=== PATIENT | female | born 1945 | race Caucasian/White ===

== ENCOUNTER 2021-02-13 11:07 | Day surgery (SDC) | payer MEDICARE, OTHER, SELFPAY ==
[2021-02-13 11:40] VITALS: BP 143/75; PULSE 90; RESP 16; TEMP 35.8; O2SAT 95
[2021-02-13] MEDS: Tropicam./Phenyleph. (1/2.5%) 5 ML BTL OS ×3 (11:40→11:51)
--- NOTE | 2021-02-13 11:48 | ANES.PREOP_ITS ---
General Info Date of Service Date Performed: 02/13/21 Height: 4 ft 10 in Weight: 60.6 kg Body Mass Index (BMI): 27.9 Surgical Procedure: Operation Date: 02/13/21 12:55 Proposed Procedures Side Surgeon p Cataract Extraction with IOL Implant Left Maximino Mcclain MD Meds Allergies and Home Medications Allergies Allergy/AdvReac Type Severity Reaction Status Date / Time morphine Allergy Severe Other (See Unverified 02/13/21 11:29 Comment) Dye Allergy Intermediate Hives Uncoded 02/13/21 11:29 Narcotics Allergy Unknown Other (See Uncoded 02/10/21 10:25 Comment) CT-scan Dye Allergy Hives Uncoded 02/10/21 10:25 Home Medication Medication Instructions Recorded aspirin [Aspir-81] 81 mg PO DAILY 02/09/21 calcium carbonate [Calcium 500] 500 mg PO DAILY 02/09/21 cephalexin 2,000 mg PO DIRECTED PRN 02/09/21 cholecalciferol (vitamin D3) 1,000 unit PO DAILY 02/09/21 [Vitamin D3] clindamycin phosphate [Cleocin] 1 appful VAGINAL HS 02/09/21 levothyroxine 50 mcg PO DAILY 02/09/21 lisinopril 10 mg PO DAILY 02/09/21 lovastatin 40 mg PO DAILY 02/09/21 omeprazole 40 mg PO DAILY 02/09/21 venlafaxine 75 mg PO DAILY 02/09/21 Current Visit Medications: Current Medications Generic Name Dose Route Start Last Admin Trade Name Freq PRN Reason Stop Dose Admin Acetaminophen 1,000 mg 02/13/21 06:00 Acetaminophen 500 Mg Tab PO Q4H PRN PRN Miscellaneous Medication 0 ml 02/13/21 06:00 Prednisolone 1%, Moxifloxacin 0.5%, Nepafenac 0.1% 5ml Btl OS DIRECTED [facility] Miscellaneous Medication 0 ml 02/13/21 06:00 02/13/21 11:46 Tropicam./Phenyleph. (1/2.5%) 5 Ml Btl OS 1 drp DIRECTED [facility] Administration Tetracaine HCl 0 ml 02/13/21 06:00 Tetracaine 0.5% 4 Ml Btl OS DIRECTED [facility] Medical History Medical History Anxiety Carotid stenosis US 10/01/18 <50% stenosis bilat. per week med. note. Causalgia of upper limb Chilblains Chronic constipation Chronic leukopenia Chronic rhinitis Depression Essential hypertension GERD (gastroesophageal reflux disease) Glaucoma pt. denies this Herpes zoster Hyperlipidemia Hypoglycemia Hypothyroidism Ingrowing nail Insomnia Left cataract Left ventricular thrombosis pt. denies this Lumbar subluxation L4-L5 Multiple sclerosis Mumps Onychodystrophy Osteoporosis Raynaud's phenomenon without gangrene Toe pain, bilateral Varicella Surgical History Surgical History (Updated 02/13/21 @ 11:37 by Nissa Langford) History of left hip replacement Hx of cataract extraction Right Hx of cholecystectomy Hx of colonoscopy Hx of hysterectomy Tobacco Smoking/Tobacco Use Status: Former Tobacco Use Alcohol Alcohol Intake: current Alcohol intake frequency: holidays/special occasions only Substance Use Substance use type: does not use Vital Signs and Lab Results Vital Signs Most Recent Vital Signs in EMR: Most Recent Vital Signs Temp Pulse Resp BP Pulse Ox 35.8 C L 90 16 143/75 H 95 02/13/21 11:40 02/13/21 11:40 02/13/21 11:40 02/13/21 11:40 02/13/21 11:40 Lab Results Blood Type / Crossmatch: No Data to Display Complete Blood Count: No Data to Display Complete Metabolic Panel: No Data to Display Liver Function Panel: No Data to Display Coagulation Panel: No Data to Display Cardiac Panel: No Data to Display Arterial Blood Gas: No Data to Display Venous Blood Gas: No Data to Display Pancreas Panel: No Data to Display Thyroid Panel: No Data to Display Infectious Disease: No Data to Display Blood Cultures: No Data to Display Toxicology Panel: No Data to Display Anesthesia Assessment and Plan Anesthesia History Personal History: No History of Anesthesia Complications Family History: No Family History of Anesthesia Complications Exercise Tolerance Exercise Tolerance: Metabolic Equivalents>4 Pertinent Negatives Pertinent Negatives: No Symptoms of GERD (Well controlled) Cardiac & Pulmonary Exam Cardiac Exam: Normal S1/S2 Heart Sounds Pulmonary Exam: Clear Bilateral Breath Sounds Airway Exam Known Difficult Airway: No Mallampati Class: 2 Mouth Opening: Normal (> 3cm) Thyromental Distance: Greater than 3 cm Neck Range of Motion: Full ROM Neck Circumference: Normal Teeth Condition: Normal Dentition and Removable Dentures/Plates Upper ASA Classification ASA Score: ASA 2 Emergency Case?: No NPO Status NPO Status: NPO Clears >2 hours, Solids >8 hours Anesthesia Plan Resuscitation Status: Full Code Anesthesia Technique: MAC Anesthesia Airway Planned: Natural Airway Monitors Used: Standard Monitors
[2021-02-13 11:57] VITALS: BMI 27.9
[2021-02-13] MEDS: Balanced Salt Soln.-PLUS 500 ML BAG (12:33)
[2021-02-13] MEDS: Tetracaine 0.5% 4 ML BTL OS (12:34)
[2021-02-13] MEDS: Lidocaine 1% Pres-Free 5 ML VIAL (12:34)
[2021-02-13] MEDS: Duovisc Viscoelastic System EACH 1 EACH (12:34)
[2021-02-13] MEDS: Povidone-Iodine Ophth 30 ML BTL (12:34)
[2021-02-13] MEDS: Lidocaine 2% Jelly 6 ML SYR (12:35)
--- NOTE | 2021-02-13 12:55 | W.PM.DSUDISC ---
Discharge Plan Disposition Patient Disposition: HOME Condition: Good Discharge Details Reason For Visit: CATARACT Attending Provider: Maximino Mcclain Primary Care Provider: Paty Edwards Home Meds and New Rx's Prescriptions: No Action venlafaxine 75 mg capsule,extended release 24hr 75 mg PO DAILY RF: 0 lovastatin 40 mg tablet 40 mg PO DAILY RF: 0 omeprazole 40 mg capsule,delayed release(DR/EC) 40 mg PO DAILY RF: 0 aspirin [Aspir-81] 81 mg Tablet,Delayed Release (Dr/Ec) 81 mg PO DAILY RF: 0 calcium carbonate [Calcium 500] 500 mg calcium (1,250 mg) Tablet 500 mg PO DAILY RF: 0 levothyroxine 50 mcg tablet 50 mcg PO DAILY RF: 0 cephalexin 500 mg capsule 2,000 mg PO DIRECTED PRNRF: 0 lisinopril 10 mg tablet 10 mg PO DAILY RF: 0 clindamycin phosphate [Cleocin] 2 % cream 1 appful VAGINAL HS RF: 0 cholecalciferol (vitamin D3) [Vitamin D3] 25 mcg (1,000 unit) Tablet,Chewable 1,000 unit PO DAILY RF: 0 Discharge Instructions Stand Alone Forms: Post-op Topical CataractBere (DSU) Discharge Orders Discharge Orders: Discharge Order (Routine); Ordered 02/13/21 Ordered By: Maximino Mcclain DS: Diagnosis Discharge Diagnosis (1) Cortical cataract of left eye: Status: Resolved (2) Nuclear sclerotic cataract of left eye: Status: Resolved
[2021-02-13 12:56] VITALS: BP 130/79; PULSE 82; RESP 16; TEMP 36.6; O2SAT 96
--- NOTE | 2021-02-13 12:56 | ROE_ITS ---
Date of service: 02/13/21 Time of Service: 12:56 Operative Note Operative Note DATE OF PROCEDURE: 02/13/21 PRE-OP DIAGNOSIS: Nuclear/cortical cataract, left eye POST-OP DIAGNOSIS: same PROCEDURE: Cataract extraction using phacoemulsification with intraocular lens implant, left eye SURGEON: Maximino Mcclain ANESTHESIA TYPE: Local By Surgeon and MAC Refer to Anesthesia Record PATHOLOGY: none sent COMPLICATIONS: None Patient was transported to: same day Patient's condition: stable Implants: Nabil and [employer]abil Vision / [employer] Tecnis ZCB00 Indications: Progressive decreased vision due to cataract, left eye Procedure Description: CATARACT SURGERY OPERATIVE REPORT PREOPERATIVE DIAGNOSIS: Nuclear/cortical cataract, left eye POSTOPERATIVE DIAGNOSIS: Same OPERATION: Cataract extraction using phacoemulsification with posterior chamber intraocular lens implant, left eye. IOL: IOL [employer] Truck [employer]/Model: [employer] / JACOB Tecnis ZCB00 IOL Power: + 26.0 diopters IOL Serial Number: [id number] Optic Diameter: 6.0mm Haptic/Overall Diameter: 13.0mm PHACO INFO: [employer] Vision System with [employer]Zil and [employer] Cumulative Dispersed Energy (CDE): 12.0 seconds SURGEON: Maximino Mcclain MD, ANDREA ANESTHESIA: Monitored Anesthesia Care (MAC), with local sub-tenon's anesthetic infiltration COMPLICATIONS: None SPECIMENS: None INDICATIONS FOR PROCEDURE: Patient is a 76-year-old lady with history of diminished visual acuity in her left eye secondary to the development of nuclear and cortical cataract. She has a history of high hyperopia and underwent cataract surgery in the right eye in 2015. 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 She has developed a significant cataract in the left eye and desires cataract surgery there and attempt to improve and maximize her vision. PROCEDURE: The correct surgical eye was identified and marked as the left eye and the pupil was dilated in the preoperative area using mydriatics and cycloplegics. The dilated pupil size was 7.0 mm. Oral sedation was administered in the form of an Imprimis MKO Melt (midazolam 3mg/ketamine 25mg/ondansetron 2mg). The patient was brought to the operating room where cardiopulmonary monitoring was instituted and surgical time-out was performed, confirming the correct operative eye and IOL power. Topical anesthesia was administered and ophthalmic povidone-iodine 5% was instilled into the conjunctival fornices. Lidocaine gel was applied to the cornea and the dionna-ocular area was prepped with Betadine 10% solution and draped in the usual sterile fashion for intraocular surgery, including an aperture drape. A Tegaderm transparent film dressing was cut in half and used to cover the lashes and lid margins. Care was taken to sequester the lashes and lid margins under the Tegaderm dressing. A lid speculum was placed between the lids of the operative eye and the Vilma-Susu operating microscope was maneuvered into position. Pancho scissors were then used to make a conjunctival buttonhole approximately 6mm posterior to the limbus in the inferonasal quadrant. Blunt dissection was carried out to expose bare sclera, and a blunt-tipped sub-tenon?s anesthesia cannula was introduced and passed posteriorly along the globe where non- preserved plain lidocaine was injected into posterior sub-Tenon?s space. A sideport knife was used to make a paracentesis port superior/superiortemporally. Intraocular phenylephrine/lidocaine was injected into the anterior chamber. The anterior chamber was then filled with viscoelastic. A 2.4mm keratome knife was used to create a half-thickness groove at the limbus and then to construct a three-plane near-clear corneal tunnel extending 2.0mm into clear cornea in the temporal position. . A flap was raised on the anterior capsule and capsulorhexis forceps were used to complete a continuous curvilinear capsulorhexis of 5.5 mm. Balanced salt solution was then used to perform cortical cleaving hydrodissection and nuclear hydrodelineation until the lens could be freely rotated within the capsular bag. The lens nucleus was then disassembled and removed within the capsular bag and iris plane using phacoemulsification. Residual cortical material was removed using the 45-degree angled silicone I/A tip with 0.3mm port. The posterior capsule was carefully polished to remove as much residual lens epithelial cells as safely possible. The capsular bag was then inflated and the anterior chamber deepened with viscoelastic. The lens implant described above was inserted into the capsular bag using the JACOB [place] Injector. A Kuglen hook was used to dial the IOL into position. Residual viscoelastic was then removed first from posterior to the IOL, then from the anterior chamber using the I/A handpiece. The lens implant was noted to center nicely within the capsular bag. The incisions were stromally hydrated, and the anterior chamber was reformed using BSS. Then 0.5cc of moxifloxacin 1.0mg/ml were injected into the capsular bag and anterior chamber. The incisions were checked with a Weck spear and found to be secure. Several drops of ophthalmic povidone-iodine 5% were then applied to the eye followed by two drops of Imprimis combination prednisolone/moxifloxacin/nepafenac solution. The drapes were removed and a clear plastic protective eye shield was placed over the eye. The patient was then returned to Same Day Surgery in stable condition.
--- NOTE | 2021-02-13 13:17 | W.ANESPOSTOP ---
Postoperative Evaluation Date, Time and Location Date Performed: 02/13/21 Time Performed: 13:17 Patient Location: Day Surgery Unit Vital Signs Most Recent Imported Vital Signs: Most Recent Vital Signs Temp Pulse Resp BP Pulse Ox 36.6 C 82 16 130/79 96 02/13/21 12:56 02/13/21 12:56 02/13/21 12:56 02/13/21 12:56 02/13/21 12:56 Pain Score Most Recent Pain Score: Most Recent Pain Score Pain Level 0 02/13/21 12:56 Assessment Mental Status: Awake (Alert & Oriented to Patient Baseline) Airway and Respiratory Function: Patent airway with normal (patient baseline) respiratory exam Cardiovascular Function: Hemodynamically Stable Hydration Status: Adequately Hydrated Nausea & Vomiting: No Nausea or Vomiting Pain: Pt. Denies Any Pain Peripheral Nerve Block: Patient did not receive a nerve block
[2021-02-13 13:22] VITALS: BP 134/80; PULSE 87; RESP 16; TEMP 36.7; O2SAT 95
== END 2021-02-13 13:45 | disposition home or self-care (01) ==
PROVIDERS: PCP Physician Assistant; Visit Provider Ophthalmology
PROC: (CPT 66984; principal; 2021-02-13 12:45)
DX: H25.12 Age-related nuclear cataract, left eye (principal); I10 Essential (primary) hypertension; E78.5 Hyperlipidemia, unspecified; E03.9 Hypothyroidism, unspecified; K21.9 Gastro-esophageal reflux disease without esophagitis
CPT/HCPCS: 66984; V2632